=== PATIENT | male | born 1985 | race Hispanic/Latino ===

== ENCOUNTER → 2022-06-29 | Outpatient (CLI) | payer BC | END | disposition home or self-care (01) | LOC: SLP 20:18 | PROVIDERS: ATTEND Nurse Practitioner Family | DX: G47.33 Obstructive sleep apnea (adult) (pediatric) (principal) | CPT/HCPCS: 95810 ==

== ENCOUNTER → 2022-08-27 | Outpatient (CLI) | payer BC | END | disposition home or self-care (01) | LOC: SLP 22:25 | PROVIDERS: ATTEND Nurse Practitioner Family | DX: G47.33 Obstructive sleep apnea (adult) (pediatric) (principal) | CPT/HCPCS: 95811 ==